=== PATIENT | female | born 1995 | race Caucasian/White ===

== ENCOUNTER → 2017-06-27 | Outpatient (CLI) | payer OTHER ==
[~2017-06-27] MED LIST: ACETAMINOPHEN-1 EAC1 PO; ALLEGRA ALLERG180 MG PO; ALLEGRA180 MG PO; BACTRIM DS TAB1 EACH PO; BENTYL20 MG PO; CARAFATE 1 GM TA1 G1; CARAFATE 1 GM TA1 G1 PO; CEFTIN500 MG; FLEXERIL PO; HYDROCODON-ACE1 EAC7 PO; HYDROCODONE-AP1 EAC6 PO; HYDROXYZINE HCL25 M2 GT; IBUPROFEN 800800 M1 PO; MEDROLDOSEPACK PO; NECON1 EAC1 PO; NORCO 5-325 TA1 EACH PO; PREDNISONE50 MG PO; PRILOSEC 10MG C10 MG PO; ROBAXIN 750 MG750 M1 PO; SINGULAIR 10 MG10 M1 PO; VELPHORO500 MG PO; VITAMIN D1000 UNI1 PO; ZANTAC; ZANTAC 150MG T150 MG PO; ZOFRAN ODT4 M1 SUBLING; ZOFRAN ODT4 MG PO; ZOLOFT25 MG PO; [UNRECOGNIZED DRUG - OTHER] PO; [UNRECOGNIZED DRUG - REMARK]
== END ==
LOC: M.MRI 11:26
DX: S06.0X9A Concussion with loss of consciousness of unspecified duration, initial encounter (principal); G43.909 Migraine, unspecified, not intractable, without status migrainosus; G24.5 Blepharospasm; X58.XXXA Exposure to other specified factors, initial encounter; Y93.89 Activity, other specified; Y92.89 Other specified places as the place of occurrence of the external cause; Y99.8 Other external cause status

== ENCOUNTER 2017-08-25 09:09 | Emergency (ER) | payer OTHER ==
[~2017-08-25] VITALS: Ht 165.1 cm; Wt 81.7 kg
[2017-08-25 09:37] LABS: ABSOLUTE EOSINOPHILS 0.3 thou/uL (0.0-0.7); ABSOLUTE LYMPHOCYTES 2.5 thou/uL (0.8-5.3); ABSOLUTE MONOCYTES 0.5 thou/uL (0.0-1.2); ABSOLUTE NEUTROPHILS 6.8 thou/uL (1.6-8.1); BASOPHILS 0.5 %; EOSINOPHILS 3.2 %; HEMATOCRIT 40.1 % (37.0-47.0); HEMOGLOBIN 13.4 gm/dL (12.0-15.0); LYMPHOCYTES 24.8 %; MCH 29.7 pg (26.0-34.0); MCHC 33.6 g/dL (28.0-37.0); MCV 88.3 fL (80.0-100.0); MONOCYTES 4.9 %; MPV 8.5 fl. (7.2-11.1); NUCLEATED RBCS 0 /100WBC; PLATELET COUNT* 295 thou/uL (150-400); POLYS 66.6 %; RBC 4.53 mil/uL (4.20-5.00); RDW-CV 12.8 % (10.5-14.5); WBC 10.3 thou/uL (4.0-11.0)
[2017-08-25 09:38] LABS: ANION GAP 7 mmol/L (7-16); BUN 17 mg/dL (7-18); CALCIUM 8.5 mg/dL (8.5-10.1); CHLORIDE 105 mmol/L (98-107); CO2 27 mmol/L (21-32); CREATININE 0.8 mg/dL (0.6-1.3); GLUCOSE 100 mg/dL (70-99); POTASSIUM 4.1 mmol/L (3.5-5.1); PROTIME 9.4 Seconds (9.20-11.50); SODIUM 139 mmol/L (136-145)
[2017-08-25 09:45] LABS: ALBUMIN 3.5 g/dL (3.4-5.0); ALKALINE PHOSPHATASE 80 U/L (46-116); SGOT 13 U/L (15-37); SGPT 23 U/L (30-65); TOTAL BILIRUBIN 0.2 mg/dL (<0.1-1.0); TOTAL PROTEIN 7.5 g/dL (6.4-8.2); TROPONIN-I LEVEL <0.06 ng/mL (<0.06)
[2017-08-25 11:11] VITALS: BP 111/71
--- NOTE | 2017-08-26 09:33 | EKG ---
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
== END 2017-08-25 11:12 | disposition home or self-care (01) ==
LOC: M.ERS 09:09
PROVIDERS: Family Medicine
DX: R20.2 Paresthesia of skin (principal); J45.909 Unspecified asthma, uncomplicated; Z88.0 Allergy status to penicillin; Z88.6 Allergy status to analgesic agent

== ENCOUNTER → 2018-03-27 | Outpatient (CLI) | payer OTHER ==
[~2018-03-27] MED LIST changes: +ATIVAN1 MG PO; +CIPRO500 MG PO; +ERYTHROMYCIN250 MG PO; +FLAGYL500 M1 PO; +MOBIC15 MG PO; +NECON1 EACH PO; +PHENERGAN 25 MG25 M1 PO; +REGLAN 10 MG TA10 MG PO
== END | disposition home or self-care (01) ==
LOC: M.RAD 09:54
DX: M25.511 Pain in right shoulder (principal); G89.29 Other chronic pain; Z88.0 Allergy status to penicillin; Z88.8 Allergy status to other drugs, medicaments and biological substances; Z79.899 Other long term (current) drug therapy; Z90.49 Acquired absence of other specified parts of digestive tract; Z98.890 Other specified postprocedural states

== ENCOUNTER 2018-04-23 16:40 | Inpatient (IN) | payer OTHER ==
[~2018-04-23] VITALS: Ht 165.1 cm; Wt 94.3 kg
--- NOTE | ~2018-04-23 | PROC ---
[address] [address] PROCEDURE REPORT Name: ORVILLE QUICK Room: [address] IN .R.#: [id number] Admission: 04/23/18 Attend Phys: Tino Nunes MD Discharge: Date of : 95 Report #: [id number] THIS REPORT FOR: //name// For GI report, Please see the Provation report in Perceptive 7 content. By: [id number] Records Staff [facility] /JONNY
[~2018-04-23 16:40] MED LIST changes: -ATIVAN1 MG PO; -CIPRO500 MG PO; -ERYTHROMYCIN250 MG PO; -FLAGYL500 M1 PO; -MOBIC15 MG PO; -PHENERGAN 25 MG25 M1 PO; -REGLAN 10 MG TA10 MG PO
[2018-04-23 16:48] VITALS: BP 126/83
[2018-04-23] MEDS ORDERED: MOBIC15 MG PO (16:53)
[2018-04-23 17:45] LABS: ICTOTEST (BILI CONFIRMATORY) Negative (Negative); URINE BILIRUBIN 1+ (Negative); URINE BLOOD 3+ (Negative); URINE CLARITY CLEAR; URINE COLOR YELLOW; URINE GLUCOSE-RANDOM NEGATIVE (Negative); URINE KETONES TRACE (Negative); URINE LEUKOCYTES-REFLEX TRACE (Negative); URINE NITRITE-REFLEX NEGATIVE (Negative); URINE PROTEIN 2+ (Negative); URINE SPECIFIC GRAVITY >= 1.030 (1.005-1.030)
[2018-04-23 17:48] LABS: BACTERIA-REFLEX >30 Many /HPF (None Seen); CASTS None Seen /LPF (None Seen); CRYSTALS None Seen /LPF (None Seen); MUCUS 0-3 Light strn/LPF (None Seen); SQUAMOUS >10 Many /LPF (0-3); URINE RBC 0-2 Rare /HPF (0-2); URINE WBC-REFLEX 6-15 Few /HPF (0-5)
[2018-04-23 17:59] LABS: ABSOLUTE BASOPHILS 0.1 thou/uL (0.0-0.2); ABSOLUTE EOSINOPHILS 0.1 thou/uL (0.0-0.7); ABSOLUTE LYMPHOCYTES 1.8 thou/uL (0.8-5.3); ABSOLUTE MONOCYTES 0.4 thou/uL (0.0-1.2); ABSOLUTE NEUTROPHILS 5.2 thou/uL (1.6-8.1); BASOPHILS 0.9 %; EOSINOPHILS 0.8 %; HEMATOCRIT 40.6 % (37.0-47.0); MCH 30.4 pg (26.0-34.0); MCHC 34.4 g/dL (28.0-37.0); MCV 88.3 fL (80.0-100.0); MONOCYTES 5.5 %; MPV 8.3 fl. (7.2-11.1); NUCLEATED RBCS 0 /100WBC; PLATELET COUNT* 270 thou/uL (150-400); POLYS 68.8 %; RDW-CV 12.5 % (10.5-14.5); WBC 7.6 thou/uL (4.0-11.0)
[2018-04-23 18:05] LABS: CALCIUM 8.4 mg/dL (8.5-10.1); CREATININE 0.8 mg/dL (0.6-1.3); POTASSIUM 3.3 mmol/L (3.5-5.1)
[2018-04-23 18:10] LABS: ALBUMIN 3.4 g/dL (3.4-5.0); TOTAL BILIRUBIN 0.2 mg/dL (<0.1-1.0); TOTAL PROTEIN 7.4 g/dL (6.4-8.2)
[2018-04-23 21:20] VITALS: BP 111/60
[2018-04-23 22:00] VITALS: BP 120/83
--- NOTE | 2018-04-24 00:14 | NUR ---
PT ARRIVED ON UNIT FROM ER AROUND 2109. VITALS STABLE. PAIN CONTROLLED WITH FENTANYL. HEATING PAD ORDERED. IV IN L AC PATENT, INFUSING. UP WITH ASSIST. ASSESSMENT COMPLETE. AT BEDSIDE. CALL LIGHT WITHIN REACH. WILL CONTINUE TO MONITOR.
--- NOTE | 2018-04-24 04:31 | NUR ---
PT REMAINED A&Ox4 THROUGHOUT SHIFT. VITALS STABLE. PAIN RELIEVED WITH FENTANYL AND A HEATING PAD. IV IN L AC PATENT, INFUSING. UP WITH STAND BY ASSIST. NAUSEA CONTROLLED WITH ZOFRAN. REMAINED NPO FOR POSSIBLE PROCEDURE IN THE MORNING. AT BEDSIDE. CALL LIGHT WITHIN REACH. HOURLY ROUNDING COMPLETE. WILL CONTINUE TO MONITOR.
[2018-04-24 06:06] LABS: AMP/METHAMP Negative (Negative); BARBITURATES Negative (Negative); BENZODIAZEPINES Negative (Negative); COCAINE Negative (Negative); METHADONE Negative (Negative); OPIATES POSITIVE (Negative); PCP Negative (Negative); THC Negative (Negative)
[2018-04-24 08:36] VITALS: BP 124/79
[2018-04-24 08:44] VITALS: BP 120/83
[2018-04-24 10:56] LABS: ABSOLUTE BASOPHILS 0.1 thou/uL (0.0-0.2); ABSOLUTE MONOCYTES 1.1 thou/uL (0.0-1.2); ABSOLUTE NEUTROPHILS 14.6 thou/uL (1.6-8.1); BASOPHILS 0.3 %; HEMATOCRIT 37.3 % (37.0-47.0); HEMOGLOBIN 12.5 gm/dL (12.0-15.0); LYMPHOCYTES 11.1 %; MCH 30.2 pg (26.0-34.0); MCHC 33.4 g/dL (28.0-37.0); MCV 90.5 fL (80.0-100.0); MONOCYTES 5.9 %; MPV 8.2 fl. (7.2-11.1); NUCLEATED RBCS 0 /100WBC; PLATELET COUNT* 232 thou/uL (150-400); POLYS 82.7 %; RBC 4.12 mil/uL (4.20-5.00); RDW-CV 12.7 % (10.5-14.5); WBC 17.7 thou/uL (4.0-11.0)
[2018-04-24 11:09] LABS: CALCIUM 7.9 mg/dL (8.5-10.1); CREATININE 0.9 mg/dL (0.6-1.3); POTASSIUM 3.5 mmol/L (3.5-5.1)
--- NOTE | 2018-04-24 14:35 | NUR ---
PT CAME BACK FROM COLONOSCOPY WITH TUBE FOR DECOMPRESSION. PT ALERT AN ORIENTED. PT C/O PAIN, MEDS GIVEN ORDERED. FALL RISK PRECAUTIONS IN PLACE. WILL CONTINUE TO MONITOR.
--- NOTE | 2018-04-24 14:55 | NUR ---
FIRST FLUSH GIVEN THROUGH OG TUBE, 500 CC WENT IN, 450 CAME BACK OUT WITH SMALL AMOUNTS OF LIQUID STOOL. PT STATED NO DISCOMFORT OR PAIN WITH FLUSH. PAIN MEDS GIVEN PRIOR TO FLUSHING. WILL CONTINUE TO MONITOR.
[2018-04-24 15:46] VITALS: BP 129/80
--- NOTE | 2018-04-24 17:22 | NUR ---
PT REMAINED ALERT AND ORIENTED. PT HAS SLEPT MOST OF SHIFT AFTER SURGERY. PT HAD 500 ML FLUSH THROUGH OG TUBE. PT TOLERATED WELL. PT C/O PAIN, MEDS GIVEN ORDERED. PT HAD DIFFIUCLTY URINATING POST SURGERY, AFTER SOME ATTMEPTS PT WAS ABLE TO VOID. FALL RISK PRECAUTIONS IN PLACE. HOURLY ROUNDING COMPLETED. WILL CONTINUE TO MONITOR.
[2018-04-24 20:20] VITALS: BP 111/66
[2018-04-25 00:29] VITALS: BP 101/63
[2018-04-25 04:29] VITALS: BP 90/55
[2018-04-25 04:44] LABS: HEMATOCRIT 31.2 % (37.0-47.0); HEMOGLOBIN 10.8 gm/dL (12.0-15.0); MCH 30.6 pg (26.0-34.0); MCHC 34.6 g/dL (28.0-37.0); MCV 88.4 fL (80.0-100.0); MPV 8.3 fl. (7.2-11.1); NUCLEATED RBCS 0 /100WBC; PLATELET COUNT* 210 thou/uL (150-400); RBC 3.53 mil/uL (4.20-5.00); RDW-CV 12.6 % (10.5-14.5); WBC 16.8 thou/uL (4.0-11.0)
--- NOTE | 2018-04-25 05:13 | NUR ---
PATIENT HAS SLEPT WELL THROUGHOUT MOST OF THE NIGHT. PAIN MEDICATION GIVEN ORDERED AND CHARTED. VSS ON RA, ALTHOUGH BP LOW AFTER TAKING PAIN MEDICATION. PATIENT IS UP WITH SBA. COLONIC DECOMPRESSION TUBE IN PLACE AND FLUSHED EVERY 4HRS WITH 500CC OF WARM TAP WATER. PATIENT TOLERATING WELL. IV IN LEFT AC-NS @ 100ML/HR. PATIENTS MOTHER AT BEDSIDE. PATIENT INSTRUCTED TO USE CALL LIGHT WHEN NEEDING ASSISTANCE. HOURLY ROUNDS MADE. WILL CONTINUE TO MONITOR.
[2018-04-25 05:22] LABS: ALBUMIN 2.6 g/dL (3.4-5.0); CALCIUM 7.9 mg/dL (8.5-10.1); CREATININE 0.7 mg/dL (0.6-1.3); POTASSIUM 3.1 mmol/L (3.5-5.1); TOTAL BILIRUBIN 0.4 mg/dL (<0.1-1.0)
[2018-04-25 06:13] LABS: ABSOLUTE LYMPHOCYTES 2.4 thou/uL (0.8-5.3); ABSOLUTE MONOCYTES 0.7 thou/uL (0.0-1.2); ABSOLUTE NEUTROPHILS 13.8 thou/uL (1.6-8.1); PLATELET ESTIMATE ADEQUATE
[2018-04-25 06:14] LABS: ANISOCYTOSIS 1+; POIKILOCYTOSIS 1+
[2018-04-25 08:45] VITALS: BP 96/60
[2018-04-25 08:50] VITALS: BP 96/60
--- NOTE | 2018-04-25 14:53 | NUR ---
SPOKE WITH PT. SHE WAS ALERT AND ORIENTED. SHE SAID SHE IS A NEWLYWED. JUST GOT 2 MONTHS AGO. 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 SHE SAID HER AND PARENTS ARE SUPPORTIVE. SHE DOES NOT FEEL SHE WILL HAVE ANY DISCHARGE NEEDS.
--- NOTE | 2018-04-25 15:20 | NUR ---
I REVIEWED DANILO GONZÁLES ASSESSMENT AND AGREE, THIS NURSE MARY GARRISON
[2018-04-25 15:27] VITALS: BP 88/54
--- NOTE | 2018-04-25 17:28 | NUR ---
PT REMAINED ALERT AND ORIENTED. PT C/O PAIN, ORAL MEDS GIVEN ORDERED. PT BLOOD PRESSURE HAS BEEN SOFT IN THE 90'S FOR SYSTOLIC, IV PAIN MEDS HELD. PT HAD ENEMA GIVEN THROUGH DECOMPRESSION TUBE. PT STATES HAVING DIFFICULTY URINATING, BLADDER SCAN SHOWED 525 ML IN BLADDER, ENOCURAGED PT TO URINATE. WILL RECHECK IN 1 HOUR AND BLADDER SCAN AFTER ATTEMPTING TO URINATE. FALL RISK PRECAUTIONS IN PLACE. HOURLY ROUNDING COMPLETED. WILL CONTINUE TO MONITOR.
[2018-04-25 20:00] VITALS: BP 98/64
--- NOTE | 2018-04-26 05:02 | NUR ---
PT REMAINED A&Ox4 THROUGHOUT SHIFT. VITALS STABLE. IV IN L AC PATENT, INFUSING. PAIN CONTROLLED WITH NORCO AND FENTANYL. ENEMA COMPLETE PER ORDERS. BOWEL FLUSHES DONE Q4H COMPLETE PER ORDERS. PT UP WITH ASSIST TO BATHROOM. MOTHER AT BEDSIDE. HOURLY ROUNDING COMPLETE. CALL LIGHT WITHIN REACH. WILL CONTINUE TO MONITOR.
[2018-04-26 07:20] LABS: ABSOLUTE EOSINOPHILS 0.1 thou/uL (0.0-0.7); ABSOLUTE LYMPHOCYTES 2.4 thou/uL (0.8-5.3); ABSOLUTE MONOCYTES 0.6 thou/uL (0.0-1.2); ABSOLUTE NEUTROPHILS 8.5 thou/uL (1.6-8.1); BASOPHILS 0.2 %; EOSINOPHILS 0.5 %; HEMATOCRIT 30.8 % (37.0-47.0); HEMOGLOBIN 10.4 gm/dL (12.0-15.0); LYMPHOCYTES 20.4 %; MCH 30.1 pg (26.0-34.0); MCHC 33.9 g/dL (28.0-37.0); MCV 88.8 fL (80.0-100.0); MONOCYTES 5.5 %; MPV 7.8 fl. (7.2-11.1); NUCLEATED RBCS 0 /100WBC; PLATELET COUNT* 207 thou/uL (150-400); POLYS 73.4 %; RBC 3.47 mil/uL (4.20-5.00); RDW-CV 12.9 % (10.5-14.5); WBC 11.6 thou/uL (4.0-11.0)
[2018-04-26 07:26] LABS: CALCIUM 7.7 mg/dL (8.5-10.1); CREATININE 0.7 mg/dL (0.6-1.3); POTASSIUM 3.3 mmol/L (3.5-5.1)
[2018-04-26 08:00] VITALS: BP 99/60
--- NOTE | 2018-04-26 12:05 | PATH ---
[address] [address] PATHOLOGY RPT PROCEDURE Name: ABDELRAHMANNURY Room: [address] IN .R.#: [id number] Admission: 04/23/18 Date of : [birth year] Discharge: Report #: [id number] Path Case #: [id number] [facility] Accession Number: [id number] . 01 Material submitted: . CECAL BIOPSY SUSPECT ISCHEMIC COLITIS . 01 Clinical history: . None provided . 02 Diagnosis: Cecal biopsy: - Nonspecific, inflamed / necrotic debris and fatty tissue with scant glands. See comment. [facility]/04/25/2018 . 02 Comment: Scant glands are present which are too few and inflamed to further qualify, but are consistent with benign colonic crypts. No granulomas or viral inclusions are seen. (KRISSY:pit 04/25/2018) . 02 Electronically signed: . Telly Garcia MD, Pathologist NPI- [id number] . 01 Gross description: . Received in formalin labeled "Nury Quick, cecal biopsy suspect ischemic colitis," is a single segment of linda soft tissue measuring 0.3 cm in maximum dimension. The specimen is entirely submitted in cassette A1. (TSD; 04/24/2018) TOB/TOB . 02 Pathologist provided ICD-10: K63.9, K59.39 . 02 CPT . 034916 Specimen Comment: A courtesy copy of this report has been sent to Specimen Comment: [phone], , . Specimen Comment: Report sent to ,DR MUNOZ / DR SWEENEY Specimen Comment: A duplicate report has been generated due to demographic updates. Performed at: [address] [id number] MD Nam Guillen MD Phone: [phone] Performed at: [address] [address] PATHOLOGY RPT PROCEDURE Name: NURY QUICK Room: [address] IN [facility].#: [id number] Admission: 04/23/18 Date of : [birth year] Discharge: Report #: [id number] Path Case #: [id number] [address] [id number] MD Telly Garcia MD Phone: [phone]
[2018-04-26 12:15] VITALS: BP 92/62
[2018-04-26 16:46] VITALS: BP 102/67
--- NOTE | 2018-04-26 18:04 | NUR ---
PT ALERT AND ORIENTED X4. RECEIVED HYDROCODONE FOR PAIN CONTROL AND ZOFRAN FOR NAUSEA DURING DAY. IVF INFUSING @ 100 MLS/HR. BOWEL FLUSH DONE @ 1045 PER ORDER. RECEIVED POTASSIUM AND MAGNESIUM REPLACEMENT DURING DAY. REMOVED RECTAL TUBE @ 1445. PT UP TO SHOWER/CHAIR. HOURLY ROUNDS MAINTAINED. FAMILY AT BEDSIDE. CALL LIGHT WITHIN REACH.
[2018-04-26 20:00] VITALS: BP 100/66
--- NOTE | 2018-04-27 04:58 | NUR ---
PT REMAINED A&Ox4 THROUGHOUT SHIFT. VITALS STABLE. UP WITH ASSIST TO BATHROOM. IV IN L AC PATNENT, INFUSING. PAIN CONTROLLED WITH NORCO. TOLERATED SOLID FOOD. PT MOTHER AT BEDSIDE. CALL LIGHT WITHIN REACH. HOURLY ROUNING COMPLETE. WILL CONTINUE TO MONITOR.
[2018-04-27 05:41] LABS: ABSOLUTE EOSINOPHILS 0.1 thou/uL (0.0-0.7); ABSOLUTE LYMPHOCYTES 3.3 thou/uL (0.8-5.3); ABSOLUTE MONOCYTES 0.5 thou/uL (0.0-1.2); ABSOLUTE NEUTROPHILS 6.8 thou/uL (1.6-8.1); BASOPHILS 0.4 %; EOSINOPHILS 1.4 %; HEMATOCRIT 34.1 % (37.0-47.0); HEMOGLOBIN 11.5 gm/dL (12.0-15.0); LYMPHOCYTES 30.2 %; MCH 30.4 pg (26.0-34.0); MCHC 33.8 g/dL (28.0-37.0); MONOCYTES 4.8 %; MPV 8.3 fl. (7.2-11.1); NUCLEATED RBCS 0 /100WBC; POLYS 63.2 %; RBC 3.79 mil/uL (4.20-5.00); RDW-CV 12.5 % (10.5-14.5); WBC 10.8 thou/uL (4.0-11.0)
[2018-04-27 05:51] LABS: PLATELET COUNT* 282 thou/uL (150-400)
[2018-04-27 06:00] LABS: CREATININE 0.7 mg/dL (0.6-1.3); POTASSIUM 3.9 mmol/L (3.5-5.1)
[2018-04-27 08:00] VITALS: BP 106/64
[2018-04-27 17:01] VITALS: BP 106/65
--- NOTE | 2018-04-27 18:39 | NUR ---
PT ALERT AND ORIENTED X 4. ADMINISTERED IV PHENERGAN AND ZOFRAN FOR NAUSEA. RECEIVED IV FENTANYL FOR ABDOMINAL PAIN. PT HAD EMESIS X 1 IN AM. UP WITH SBA X 1. PASSING GAS-NO BOWEL MOVEMENTS DURING DAY. HOURLY ROUNDS MAINTAINED. PT WILL USE CALL LIGHT FOR ASSISTANCE. CALL LIGHT WITHIN REACH.
[2018-04-27 21:03] VITALS: BP 94/63
--- NOTE | 2018-04-28 08:12 | NUR ---
PT IS ABLE TO COMMUNICATE HER NEEDS TO STAFF EFFECTIVELY. CURRENT PAIN MEDICATION REGIMEN HAS BEEN ADEQUATE FOR CONTROLLING HER PAIN UP TO THIS TIME. SHE IS STILL HAVING SOME DIFFICULTY EATING WITHOUT VOMITING SOON AFTERWARD; IV PHENERGEN HAS BEEN MOST EFFECTIVE TREATING HER N/V UP TO THIS TIME. GI FOLLOWING AND SHOULD SEE HER TODAY. PT'S MOTHER IS CONCERNED.
[2018-04-28 08:55] VITALS: BP 118/76
[2018-04-28 13:22] LABS: HEMATOCRIT 35.2 % (37.0-47.0); MCH 30.3 pg (26.0-34.0); MCV 89.2 fL (80.0-100.0); MPV 7.8 fl. (7.2-11.1); RBC 3.94 mil/uL (4.20-5.00); RDW-CV 12.7 % (10.5-14.5); WBC 9.4 thou/uL (4.0-11.0)
[2018-04-28 13:47] LABS: CALCIUM 8.5 mg/dL (8.5-10.1); CREATININE 0.7 mg/dL (0.6-1.3); MAGNESIUM 1.8 mg/dL (1.8-2.4); POTASSIUM 3.4 mmol/L (3.5-5.1)
[2018-04-28 20:45] VITALS: BP 110/69
--- NOTE | 2018-04-28 22:57 | CON ---
[address] [address] CONSULTATION Name: ORVILLE QUICK Room: [address] IN M.R.#: [id number] Admission: 04/23/18 Attend Phys: Tino Nunes MD Discharge: Date of : 95 Report #: [id number] THIS REPORT FOR: //name// CC: Kojo Mari MD [facility] DATE OF SERVICE: 04/23/2018 REFERRING PHYSICIAN: Tino Nunes MD REASON FOR CONSULTATION: Abdominal pain. IMPRESSION: 1. Acute right-sided abdominal pain with markedly dilated colon, particularly in the right colon -- suspect ischemic colitis. 2. Dilated colon without evidence for obvious obstruction -- suspect [place] syndrome. 3. 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 RECOMMENDATIONS: 1. Because the patient's abdomen is still exquisitely tender, I am going to perform an abdominal series to ensure she has no evidence for a pneumoperitoneum. 2. If her abdominal series is negative, I will proceed with colonoscopy this morning under general endotracheal anesthesia with plans to decompress the colon and place a colonic decompression tube. Also, take biopsies from the colon due to her personal history of eosinophilic colitis. I discussed the impression and plans with the patient and her mother and they are agreeable to the same. HISTORY OF PRESENT ILLNESS: The patient is a pleasant 23-year-old white female, with history of eosinophilic colitis who was previously followed at [facility] for the same, who was admitted to the hospital with complaints of worsening right-sided abdominal pain radiating into her back for the last 24 hours. She had flu-like illness over the weekend with body aches, fevers and chills and was having a little bit of loose stools. She was having diarrhea, but she was only going to bathroom usually once or twice a day. She denies any bleeding. She has not been on any antibiotics. She has not been exposed to anyone with these issues. She had been doing fine without any complaints referable to upper or lower GI tract for quite some time. She has undergone endoscopic studies of her lower GI tract by me in the past and was actually referred to [facility] for long-term evaluation and treatment of her eosinophilic colitis. She has never had gone for the same. She, prior to this, had not been having any issues referable to her [facility] [place] [address] CONSULTATION Name: ORVILLE QUICK Anna Room: [address] IN [facility]#: [id number] Admission: 04/23/18 Attend Phys: Tino Nunes MD Discharge: Date of : 95 Report #: [id number] lower GI tract. She was seen through the Emergency Room and underwent laboratory testing, which was essentially unrevealing and a CAT scan of her abdomen and pelvis, which revealed dilated colon up to almost 9.5 cm at the level of cecum, which extended across the ascending colon, transverse colon and descending colon with thick relative decompression of the sigmoid colon and rectum. I reviewed the CT scan and did not see an obvious obstruction or obvious bowel wall thickening. She is admitted to the hospital for further evaluation and treatment. ALLERGIES: PENICILLIN AND TRAMADOL. MEDICATIONS: At home include vitamin D, meloxicam and Necon. PAST MEDICAL HISTORY: Significant for asthma, eosinophilic colitis. She has had previous cholecystectomy. She had left shoulder surgery. She had right hip surgery for a torn labrum in the past. SOCIAL HISTORY: The patient does not smoke or drink. FAMILY HISTORY: Remarkable for Crohn's disease in an aunt. PHYSICAL EXAMINATION: GENERAL: This is a pleasant 23-year-old white female who is in some distress secondary to pain. She is awake and alert. CARDIOPULMONARY: Revealed tachycardic rate and rhythm. LUNGS: Clear. ABDOMEN: Soft, exquisitely tender in the right lower quadrant. No rebound that I could appreciate was noted. LABORATORY DATA: From admission revealed a white count of 7.6, hemoglobin 14.0, platelet count 270,000. MCV is 88.3, RDW 12.5. Her sodium was 139, potassium 3.3, chloride 106, bicarbonate 26, BUN 17, creatinine 0.8, total bilirubin 0.2, alkaline phosphatase 80, AST is 23, ALT 42, albumin is 3.4. Sed rate is 10. C-reactive protein 37.2. Lactic acid level was 0.5. DISCUSSION: At the present time, the patient has got severe abdominal pain with colonic distention. We will proceed with abdominal series and if negative, colonoscopy with colonic decompression tube placement today. I have discussed the plans with the patient as well and they are agreeable to the same. <ELECTRONICALLY SIGNED> By: Magan Pickard DO 04/28/18 2257 0804 1852Magan Pickard DO /nt
--- NOTE | 2018-04-29 06:07 | NUR ---
PATIENT HAS SLEPT WELL THROUGHOUT THE NIGHT. VSS ON RA. NO C/O PAIN. NO BM NOTED. MEDICATIONS GIVEN ORDERED AND CHARTED. IV IN LEFT AC-NS @ 100ML/HR. AT BEDSIDE. PATIENT INSTRUCTED TO USE CALL LIGHT WHEN NEEDING ASSISTANCE. HOURLY ROUNDS MADE. WILL CONTINUE WITH PLAN OF CARE AND NURSING TO MONITOR.
[2018-04-29 07:45] VITALS: BP 114/72
[2018-04-29 11:06] LABS: ABSOLUTE BASOPHILS 0.1 thou/uL (0.0-0.2); ABSOLUTE EOSINOPHILS 0.1 thou/uL (0.0-0.7); ABSOLUTE LYMPHOCYTES 1.6 thou/uL (0.8-5.3); ABSOLUTE MONOCYTES 0.5 thou/uL (0.0-1.2); BASOPHILS 0.5 %; EOSINOPHILS 0.9 %; HEMATOCRIT 34.1 % (37.0-47.0); HEMOGLOBIN 11.6 gm/dL (12.0-15.0); LYMPHOCYTES 14.1 %; MCH 30.5 pg (26.0-34.0); MCHC 34.1 g/dL (28.0-37.0); MCV 89.3 fL (80.0-100.0); MONOCYTES 4.7 %; MPV 7.9 fl. (7.2-11.1); NUCLEATED RBCS 0 /100WBC; PLATELET COUNT* 345 thou/uL (150-400); POLYS 79.8 %; RBC 3.81 mil/uL (4.20-5.00); RDW-CV 12.7 % (10.5-14.5); WBC 11.2 thou/uL (4.0-11.0)
[2018-04-29 11:08] LABS: CALCIUM 8.4 mg/dL (8.5-10.1); CREATININE 0.8 mg/dL (0.6-1.3); POTASSIUM 3.6 mmol/L (3.5-5.1)
[2018-04-29 16:30] VITALS: BP 119/69
--- NOTE | 2018-04-29 17:42 | NUR ---
ALERT AND ORIENTED X4. UP AD KENDELL IN ROOM. IV IS PATENT AND SALINE LOCKED. DENIES NEED FOR PAIN OR NAUSEA MEDICATION THROUGHOUT SHIFT. PO LORAZAPAM GIVEN FOR ANXIETY. AMBULATED IN HALLWAYS TODAY. HAD MULTIPLE BOWEL MOVEMENT THIS SHIFT. TOLERATING DIET. VSS ON ROOM AIR. HOURLY ROUNDS HAVE BEEN MAINTAINED THROUGHOUT SHIFT. CALL LIGHT IS WITHIN REACH. NURSING WILL CONTINUE TO MONITOR.
[2018-04-29 22:50] VITALS: BP 113/68
--- NOTE | 2018-04-30 05:23 | NUR ---
PATIENT HAS SLEPT WELL THROUGHOUT THE NIGHT. VSS ON RA. MEDICATIONS GIVEN ORDERED AND CHARTED. PATIENT UP AD-KENDELL AND STEADY. IV IN LEFT AC-SL. IV ABT GIVEN WITHOUT ANY ADVERSE SIDE EFFECTS NOTED. PATIENT INSTRUCTED TO USE CALL LIGHT WHEN NEEDED. WILL CONTINUE WITH PLAN OF CARE. HOURLY ROUNDS MADE. WILL CONTINUE TO MONITOR.
[2018-04-30 08:00] VITALS: BP 98/59
[2018-04-30 10:40] LABS: ALBUMIN 2.9 g/dL (3.4-5.0); DIRECT BILIRUBIN 0.3 mg/dL (<0.1-0.3); TOTAL BILIRUBIN 0.5 mg/dL (<0.1-1.0); TOTAL PROTEIN 6.3 g/dL (6.4-8.2)
[2018-04-30] MEDS ORDERED: REGLAN 10 MG TA10 MG PO (10:58)
[2018-04-30] MEDS ORDERED: PHENERGAN 25 MG25 M1 PO (10:59)
[2018-04-30] MEDS ORDERED: CIPRO500 MG PO (11:00)
[2018-04-30] MEDS ORDERED: FLAGYL500 M1 PO (11:02)
[2018-04-30 11:04] VITALS: BP 98/59
[2018-04-30] MEDS ORDERED: ATIVAN1 MG PO (13:37)
[2018-04-30] MEDS ORDERED: ERYTHROMYCIN250 MG PO (13:39)
[2018-04-30 13:40] VITALS: BP 98/59
--- NOTE | 2018-04-30 17:57 | NUR ---
PATIENT LEFT UNIT AT 1700. ALERT AND ORIENTED X4. UP AD KENDELL IN ROOM. IV DC'D. DENIES NEED FOR PAIN MEDICATION. DENIES NAUSEA. TOLERATING DIET. ALL PERSONAL ITEMS LEFT WITH PATIENT. DISCHARGE INSTRUCTIONS, PRESCRIPTIONS, AND NEW MEDICATION INFORMATION SENT WITH PATIENT. VSS ON ROOM AIR. HOURLY ROUNDS HAVE BEEN MAINTAINED THROUGHOUT SHIFT. LEFT WITH MOM VIA CAR.
[2018-04-30 18:01] VITALS: BP 98/59
--- NOTE | 2018-04-30 18:04 | NUR ---
RN HAS REVIEWED AND AGREES WITH STUDENT NURSES CHARTING.
== END 2018-04-30 17:00 | disposition home or self-care (01) | DRG 394 ==
LOC: M.ERS 16:40 → M.TBA-ER 18:52 → M.ORTHSURG 18:52
PROVIDERS: Family Medicine; Internal Medicine Gastroenterology; Nurse Practitioner Family; ADMIT Internal Medicine
PROC: 0DBH8ZX Excision of Cecum, Via Natural or Artificial Opening Endoscopic, Diagnostic (ICD-10-PCS; principal; 2018-04-24)
PROC: 0D7E8ZZ Dilation of Large Intestine, Via Natural or Artificial Opening Endoscopic (ICD-10-PCS; principal; 2018-04-24)
DX: K55.9 Vascular disorder of intestine, unspecified (principal); K59.31 Toxic megacolon; E87.6 Hypokalemia; K52.9 Noninfective gastroenteritis and colitis, unspecified; J45.20 Mild intermittent asthma, uncomplicated; Z88.0 Allergy status to penicillin; Z88.8 Allergy status to other drugs, medicaments and biological substances; Z79.899 Other long term (current) drug therapy; Z83.79 Family history of other diseases of the digestive system; Z90.49 Acquired absence of other specified parts of digestive tract; Z82.49 Family history of ischemic heart disease and other diseases of the circulatory system; Z83.3 Family history of diabetes mellitus

== ENCOUNTER → 2018-05-10 | Outpatient (CLI) | payer OTHER ==
[~2018-05-10] MED LIST changes: +ATIVAN1 MG PO; +CIPRO500 MG PO; +ERYTHROMYCIN250 MG PO; +FLAGYL500 M1 PO; +MOBIC15 MG PO; +PHENERGAN 25 MG25 M1 PO; +REGLAN 10 MG TA10 MG PO
[2018-05-10 10:01] LABS: ABSOLUTE BASOPHILS 0.1 thou/uL (0.0-0.2); ABSOLUTE EOSINOPHILS 0.2 thou/uL (0.0-0.7); ABSOLUTE LYMPHOCYTES 2.6 thou/uL (0.8-5.3); ABSOLUTE MONOCYTES 0.5 thou/uL (0.0-1.2); ABSOLUTE NEUTROPHILS 4.6 thou/uL (1.6-8.1); EOSINOPHILS 2.3 %; HEMATOCRIT 38.9 % (37.0-47.0); HEMOGLOBIN 13.1 gm/dL (12.0-15.0); LYMPHOCYTES 32.4 %; MCH 30.4 pg (26.0-34.0); MCHC 33.6 g/dL (28.0-37.0); MCV 90.2 fL (80.0-100.0); MONOCYTES 5.9 %; MPV 8.6 fl. (7.2-11.1); NUCLEATED RBCS 0 /100WBC; PLATELET COUNT* 365 thou/uL (150-400); POLYS 58.4 %; RBC 4.31 mil/uL (4.20-5.00); WBC 7.9 thou/uL (4.0-11.0)
[2018-05-10 10:17] LABS: ALBUMIN 3.2 g/dL (3.4-5.0); CALCIUM 8.7 mg/dL (8.5-10.1); CREATININE 0.9 mg/dL (0.6-1.3); POTASSIUM 4.1 mmol/L (3.5-5.1); TOTAL BILIRUBIN 0.4 mg/dL (<0.1-1.0); TOTAL PROTEIN 6.9 g/dL (6.4-8.2)
[2018-05-10 11:02] LABS: ESR (SEDRATE) 20 mm/hr (0-20)
== END ==
LOC: M.CT 08:54
PROVIDERS: Nurse Practitioner Adult Health
DX: I99.8 Other disorder of circulatory system (principal); R10.11 Right upper quadrant pain; R94.5 Abnormal results of liver function studies; K55.9 Vascular disorder of intestine, unspecified; Z90.49 Acquired absence of other specified parts of digestive tract

== ENCOUNTER → 2018-06-06 | Outpatient (CLI) | payer OTHER ==
[2018-06-06 14:41] LABS: ALBUMIN 3.6 g/dL (3.4-5.0); CALCIUM 8.9 mg/dL (8.5-10.1); CREATININE 0.9 mg/dL (0.6-1.3); POTASSIUM 4.4 mmol/L (3.5-5.1); TOTAL BILIRUBIN 0.3 mg/dL (<0.1-1.0); TOTAL PROTEIN 7.1 g/dL (6.4-8.2)
== END ==
LOC: M.LAB 13:54
PROVIDERS: Nurse Practitioner Adult Health
DX: R94.5 Abnormal results of liver function studies (principal)

== ENCOUNTER → 2018-08-22 | Outpatient (CLI) | payer OTHER ==
[2018-08-22 12:41] LABS: ABSOLUTE BASOPHILS 0.1 thou/uL (0.0-0.2); ABSOLUTE EOSINOPHILS 0.1 thou/uL (0.0-0.7); ABSOLUTE LYMPHOCYTES 1.9 thou/uL (0.8-5.3); ABSOLUTE MONOCYTES 0.4 thou/uL (0.0-1.2); ABSOLUTE NEUTROPHILS 8.6 thou/uL (1.6-8.1); BASOPHILS 0.6 %; HEMATOCRIT 40.5 % (37.0-47.0); HEMOGLOBIN 13.8 gm/dL (12.0-15.0); LYMPHOCYTES 17.2 %; MCH 30.1 pg (26.0-34.0); MCHC 34.1 g/dL (28.0-37.0); MCV 88.3 fL (80.0-100.0); MONOCYTES 3.3 %; MPV 8.1 fl. (7.2-11.1); NUCLEATED RBCS 0 /100WBC; PLATELET COUNT* 288 thou/uL (150-400); POLYS 77.9 %; RBC 4.59 mil/uL (4.20-5.00)
[2018-08-22 13:09] LABS: ALBUMIN 3.6 g/dL (3.4-5.0); CREATININE 0.8 mg/dL (0.6-1.3); TOTAL BILIRUBIN 0.3 mg/dL (<0.1-1.0); TOTAL PROTEIN 7.7 g/dL (6.4-8.2)
[2018-08-22 15:49] LABS: ESR (SEDRATE) 11 mm/hr (0-20)
== END ==
LOC: M.LAB 12:15
PROVIDERS: Internal Medicine Gastroenterology
DX: D64.9 Anemia, unspecified (principal); R94.5 Abnormal results of liver function studies; K62.5 Hemorrhage of anus and rectum

== ENCOUNTER 2019-04-26 19:39 | Emergency (ER) | payer OTHER ==
[~2019-04-26] VITALS: Ht 165.1 cm; Wt 79.4 kg
[2019-04-26] MEDS ORDERED: VITAMIN B-125000 MCG PO (20:16)
[2019-04-26] MEDS ORDERED: JUNEL FE 24 TA1 EACH PO (20:17)
[2019-04-26] MEDS ORDERED: LEVO-T25 MCG PO (20:17)
[2019-04-26 20:22] LABS: URINE BILIRUBIN NEGATIVE (Negative); URINE BLOOD 2+ (Negative); URINE COLOR YELLOW; URINE GLUCOSE-RANDOM NEGATIVE (Negative); URINE KETONES NEGATIVE (Negative); URINE LEUKOCYTES-REFLEX NEGATIVE (Negative); URINE NITRITE-REFLEX NEGATIVE (Negative); URINE PROTEIN NEGATIVE (Negative); URINE SPECIFIC GRAVITY >= 1.030 (1.005-1.030); URINE UROBILINOGEN 0.2 E.U./dl (0.2-1.0)
[2019-04-26 20:23] LABS: URINE CLARITY HAZY
[2019-04-26 20:26] LABS: ABSOLUTE BASOPHILS 0.1 thou/uL (0.0-0.2); ABSOLUTE EOSINOPHILS 0.2 thou/uL (0.0-0.7); ABSOLUTE LYMPHOCYTES 3.4 thou/uL (0.8-5.3); ABSOLUTE MONOCYTES 0.6 thou/uL (0.0-1.2); ABSOLUTE NEUTROPHILS 8.7 thou/uL (1.6-8.1); BASOPHILS 0.7 %; EOSINOPHILS 1.9 %; HEMATOCRIT 39.8 % (37.0-47.0); HEMOGLOBIN 13.6 gm/dL (12.0-15.0); MCH 29.3 pg (26.0-34.0); MCHC 34.1 g/dL (28.0-37.0); MONOCYTES 4.9 %; MPV 8.2 fl. (7.2-11.1); NUCLEATED RBCS 0 /100WBC; PLATELET COUNT* 346 thou/uL (150-400); POLYS 66.5 %; RBC 4.62 mil/uL (4.20-5.00); RDW-CV 12.5 % (10.5-14.5)
[2019-04-26 20:34] LABS: CALCIUM 8.6 mg/dL (8.5-10.1); CREATININE 0.8 mg/dL (0.6-1.3); POTASSIUM 3.8 mmol/L (3.5-5.1)
[2019-04-26 20:34] LABS: SQUAMOUS 4-10 Moderate /LPF (0-3)
[2019-04-26 20:35] LABS: BACTERIA-REFLEX None Seen /HPF (None Seen); CASTS None Seen /LPF (None Seen); CRYSTALS None Seen /LPF (None Seen); MUCUS 4-6 Moderate strn/LPF (None Seen); URINE RBC 0-2 Rare /HPF (0-2); URINE WBC-REFLEX None Seen /HPF (0-5)
[2019-04-26 20:36] LABS: INR 0.9; PROTIME 9.6 Seconds (9.20-11.50)
[2019-04-26 23:05] VITALS: BP 114/56
== END 2019-04-26 23:05 | disposition home or self-care (01) ==
LOC: M.ERS 19:39
PROVIDERS: Emergency Medicine
DX: I73.00 Raynaud's syndrome without gangrene (principal); J45.909 Unspecified asthma, uncomplicated; Z90.89 Acquired absence of other organs; Z98.890 Other specified postprocedural states; Z88.0 Allergy status to penicillin

== ENCOUNTER → 2019-08-08 | Outpatient (CLI) | payer BC, OTHER ==
[~2019-08-08] MED LIST changes: +JUNEL FE 24 TA1 EACH PO; +LEVO-T25 MCG PO; +VITAMIN B-125000 MCG PO
[2019-08-08 17:36] LABS: ALBUMIN 3.8 g/dL (3.4-5.0); CALCIUM 8.8 mg/dL (8.5-10.1); POTASSIUM 4.1 mmol/L (3.5-5.1); TOTAL BILIRUBIN 0.2 mg/dL (<0.1-1.0); TOTAL PROTEIN 7.9 g/dL (6.4-8.2)
[2019-08-09 02:08] LABS: HEPATITIS B SURFACE AG Negative (Negative)
[2019-08-10 16:08] LABS: ANA INTERPRETATION Negative (Negative)
== END ==
LOC: M.LAB 16:54
PROVIDERS: Internal Medicine Gastroenterology
DX: R74.8 Abnormal levels of other serum enzymes (principal)

== ENCOUNTER → 2019-08-29 | Outpatient (CLI) | payer BC, OTHER ==
[2019-08-29 14:11] LABS: ALBUMIN 3.7 g/dL (3.4-5.0); DIRECT BILIRUBIN 0.1 mg/dL (<0.1-0.3); TOTAL BILIRUBIN 0.2 mg/dL (<0.1-1.0)
== END ==
LOC: M.LAB 13:32
PROVIDERS: ATTEND Internal Medicine Gastroenterology
DX: K51.90 Ulcerative colitis, unspecified, without complications (principal); Z79.899 Other long term (current) drug therapy

== ENCOUNTER → 2020-01-23 | Outpatient (CLI) | payer BC, OTHER | LOC: M.ULTRA 15:30 | PROVIDERS: ATTEND Physician Assistant | DX: N64.4 Mastodynia (principal) ==

== ENCOUNTER 2020-02-24 12:22 | Emergency (ER) | payer BC, OTHER ==
[~2020-02-24] VITALS: Ht 157.5 cm; Wt 94.3 kg
[2020-02-24] MEDS ORDERED: BUPROPION HCL100 MG PO (12:31)
[2020-02-24] MEDS ORDERED: METFORMIN HCL500 M3 PO (12:31)
[2020-02-24 12:40] LABS: ABSOLUTE BASOPHILS 0.1 thou/uL (0.0-0.2); ABSOLUTE EOSINOPHILS 0.3 thou/uL (0.0-0.7); ABSOLUTE LYMPHOCYTES 2.4 thou/uL (0.8-5.3); ABSOLUTE MONOCYTES 0.4 thou/uL (0.0-1.2); ABSOLUTE NEUTROPHILS 7.4 thou/uL (1.6-8.1); BASOPHILS 0.7 %; EOSINOPHILS 2.6 %; HEMATOCRIT 41.2 % (37.0-47.0); HEMOGLOBIN 13.8 gm/dL (12.0-15.0); LYMPHOCYTES 23.1 %; MCH 29.6 pg (26.0-34.0); MCHC 33.5 g/dL (28.0-37.0); MCV 88.4 fL (80.0-100.0); MONOCYTES 3.7 %; MPV 7.7 fl. (7.2-11.1); NUCLEATED RBCS 0 /100WBC; PLATELET COUNT* 353 thou/uL (150-400); POLYS 69.9 %; RBC 4.66 mil/uL (4.20-5.00); RDW-CV 12.6 % (10.5-14.5); WBC 10.6 thou/uL (4.0-11.0)
[2020-02-24 12:55] LABS: CALCIUM 8.6 mg/dL (8.5-10.1); CREATININE 0.9 mg/dL (0.6-1.3); POTASSIUM 3.9 mmol/L (3.5-5.1)
[2020-02-24 12:59] LABS: ALBUMIN 3.8 g/dL (3.4-5.0); TOTAL BILIRUBIN 0.4 mg/dL (<0.1-1.0); TOTAL PROTEIN 8.1 g/dL (6.4-8.2)
[2020-02-24 13:39] LABS: URINE BLOOD 2+ (Negative); URINE CLARITY CLEAR; URINE COLOR YELLOW; URINE GLUCOSE-RANDOM NEGATIVE (Negative); URINE KETONES NEGATIVE (Negative); URINE LEUKOCYTES-REFLEX NEGATIVE (Negative); URINE NITRITE-REFLEX NEGATIVE (Negative); URINE PROTEIN NEGATIVE (Negative); URINE SPECIFIC GRAVITY >= 1.030 (1.005-1.030); URINE UROBILINOGEN 0.2 E.U./dl (0.2-1.0)
[2020-02-24 13:46] LABS: ICTOTEST (BILI CONFIRMATORY) Negative (Negative); URINE BILIRUBIN 1+ (Negative)
[2020-02-24 14:01] LABS: SQUAMOUS 4-10 Moderate /LPF (0-3)
[2020-02-24 14:02] LABS: BACTERIA-REFLEX 1-9 Few /HPF (None Seen); CASTS None Seen /LPF (None Seen); URIC ACID CRYSTALS 4-10 Moderate /LPF (None Seen); URINE RBC 3-10 Few /HPF (0-2); URINE WBC-REFLEX 0-5 Rare /HPF (0-5)
[2020-02-24] MEDS ORDERED: FLAGYL500 M1 PO (14:31)
[2020-02-24] MEDS ORDERED: CIPRO500 MG PO (14:31)
[2020-02-24] MEDS ORDERED: NORCO 5-325 TA1 EAC2 PO (14:31)
[2020-02-24] MEDS ORDERED: PHENERGAN 25 MG25 M1 PO (14:32)
[2020-02-24 14:50] VITALS: BP 105/63
== END 2020-02-24 14:51 | disposition home or self-care (01) ==
LOC: M.ERS 12:22
PROVIDERS: Nurse Practitioner Family
DX: K52.9 Noninfective gastroenteritis and colitis, unspecified (principal); J45.909 Unspecified asthma, uncomplicated; Z88.0 Allergy status to penicillin; Z88.6 Allergy status to analgesic agent; Z86.2 Personal history of diseases of the blood and blood-forming organs and certain disorders involving the immune mechanism

== ENCOUNTER 2020-02-27 13:51 | Emergency (ER) | payer BC, OTHER ==
[~2020-02-27] VITALS: Ht 165.1 cm; Wt 94.3 kg
[~2020-02-27 13:51] MED LIST changes: +BUPROPION HCL100 MG PO; +METFORMIN HCL500 M3 PO; +NORCO 5-325 TA1 EAC2 PO
[2020-02-27 15:11] LABS: HEMOGLOBIN 14.1 gm/dL (12.0-15.0); MCH 29.5 pg (26.0-34.0); MCHC 32.8 g/dL (28.0-37.0); MCV 90.1 fL (80.0-100.0); MPV 8.1 fl. (7.2-11.1); NUCLEATED RBCS 0 /100WBC; PLATELET COUNT* 287 thou/uL (150-400); RBC 4.77 mil/uL (4.20-5.00); RDW-CV 13.1 % (10.5-14.5); WBC 22.1 thou/uL (4.0-11.0)
[2020-02-27 15:22] LABS: CALCIUM 8.5 mg/dL (8.5-10.1); CREATININE 0.9 mg/dL (0.6-1.3); POTASSIUM 4.2 mmol/L (3.5-5.1)
[2020-02-27 15:26] LABS: ALBUMIN 3.5 g/dL (3.4-5.0); TOTAL BILIRUBIN 0.2 mg/dL (<0.1-1.0); TOTAL PROTEIN 7.7 g/dL (6.4-8.2)
[2020-02-27 15:55] LABS: ABSOLUTE LYMPHOCYTES 2.7 thou/uL (0.8-5.3); ABSOLUTE NEUTROPHILS 19.4 thou/uL (1.6-8.1)
[2020-02-27 15:56] LABS: PLATELET ESTIMATE ADEQUATE
[2020-02-27 16:33] LABS: URINE BILIRUBIN NEGATIVE (Negative); URINE BLOOD 1+ (Negative); URINE COLOR YELLOW; URINE GLUCOSE-RANDOM NEGATIVE (Negative); URINE KETONES TRACE (Negative); URINE LEUKOCYTES-REFLEX TRACE (Negative); URINE NITRITE-REFLEX NEGATIVE (Negative); URINE PROTEIN NEGATIVE (Negative); URINE UROBILINOGEN 0.2 E.U./dl (0.2-1.0)
[2020-02-27 16:38] LABS: URINE CLARITY HAZY
[2020-02-27 16:52] LABS: SQUAMOUS >10 Many /LPF (0-3); URINE RBC 0-2 Rare /HPF (0-2); URINE WBC-REFLEX 0-5 Rare /HPF (0-5)
[2020-02-27 16:53] LABS: CASTS None Seen /LPF (None Seen); CRYSTALS None Seen /LPF (None Seen); MUCUS 0-3 Light strn/LPF (None Seen)
--- NOTE | 2020-02-27 17:11 | EKG ---
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: [facility] : 1995 Requested By: Geovani Ley Order Number: [id number] MD: Juan Muhammad Measurements Intervals [place] Rate: 101 P: 58 MD: 146 QRS: 2 QRSD: 73 T: 38 QT: 323 QTc: 419 Interpretive Statements Sinus tachycardia septal q waves noted Compared to ECG 08/25/2017 09:23:38 Sinus rhythm no longer present Electronically Signed On 02-27-2020 17:11:12 UNATTENDED GROUND SENSOR SPECIALIST by Juan Muhammad [email or web address] <ELECTRONICALLY SIGNED> By: Juan Muhammad MD, [facility] 02/27/20 171 49 49 Juan Muhammad MD, FAC /EPI
[2020-02-27] MEDS ORDERED: NORCO 5-325 TA1 EAC2 PO (17:20)
[2020-02-27 18:04] VITALS: BP 121/60
== END 2020-02-27 18:05 | disposition home or self-care (01) ==
LOC: M.ERS 13:51
PROVIDERS: Emergency Medicine Emergency Medical Services
DX: R10.11 Right upper quadrant pain (principal); R10.31 Right lower quadrant pain; J45.909 Unspecified asthma, uncomplicated; Z88.0 Allergy status to penicillin; Z88.6 Allergy status to analgesic agent; Z86.2 Personal history of diseases of the blood and blood-forming organs and certain disorders involving the immune mechanism

== ENCOUNTER 2020-06-22 15:40 | Emergency (ER) | payer OTHER, BC ==
[~2020-06-22] VITALS: Ht 165.1 cm; Wt 90.7 kg
[2020-06-22 16:25] LABS: ABSOLUTE BASOPHILS 0.1 thou/uL (0.0-0.2); ABSOLUTE EOSINOPHILS 0.4 thou/uL (0.0-0.7); ABSOLUTE LYMPHOCYTES 3.2 thou/uL (0.8-5.3); ABSOLUTE MONOCYTES 0.6 thou/uL (0.0-1.2); ABSOLUTE NEUTROPHILS 7.6 thou/uL (1.6-8.1); BASOPHILS 0.5 %; EOSINOPHILS 3.2 %; HEMATOCRIT 36.6 % (37.0-47.0); HEMOGLOBIN 12.2 gm/dL (12.0-15.0); LYMPHOCYTES 26.7 %; MCH 29.6 pg (26.0-34.0); MCHC 33.4 g/dL (28.0-37.0); MCV 88.6 fL (80.0-100.0); MPV 7.7 fl. (7.2-11.1); NUCLEATED RBCS 0 /100WBC; PLATELET COUNT* 317 thou/uL (150-400); POLYS 64.6 %; RBC 4.13 mil/uL (4.20-5.00); RDW-CV 12.5 % (10.5-14.5); WBC 11.8 thou/uL (4.0-11.0)
[2020-06-22 16:30] LABS: URINE BILIRUBIN NEGATIVE (Negative); URINE BLOOD 1+ (Negative); URINE CLARITY CLEAR; URINE COLOR YELLOW; URINE GLUCOSE-RANDOM NEGATIVE (Negative); URINE KETONES NEGATIVE (Negative); URINE LEUKOCYTES-REFLEX NEGATIVE (Negative); URINE NITRITE-REFLEX NEGATIVE (Negative); URINE PROTEIN NEGATIVE (Negative); URINE SPECIFIC GRAVITY >= 1.030 (1.005-1.030); URINE UROBILINOGEN 0.2 E.U./dl (0.2-1.0)
[2020-06-22 16:33] LABS: CALCIUM 9.1 mg/dL (8.5-10.1); POTASSIUM 4.1 mmol/L (3.5-5.1)
[2020-06-22 16:39] LABS: AMP/METHAMP Negative (Negative); BARBITURATES Negative (Negative); BENZODIAZEPINES Negative (Negative); COCAINE Negative (Negative); METHADONE Negative (Negative); OPIATES Negative (Negative); PCP Negative (Negative); THC Negative (Negative)
[2020-06-22 16:40] LABS: BACTERIA-REFLEX 1-9 Few /HPF (None Seen); SQUAMOUS >10 Many /LPF (0-3); URINE RBC 0-2 Rare /HPF (0-2); URINE WBC-REFLEX 0-5 Rare /HPF (0-5)
[2020-06-22 16:41] LABS: CASTS None Seen /LPF (None Seen); CRYSTALS None Seen /LPF (None Seen); MUCUS 0-3 Light strn/LPF (None Seen)
[2020-06-22 16:44] LABS: ALBUMIN 3.4 g/dL (3.4-5.0); TOTAL BILIRUBIN 0.2 mg/dL (<0.1-1.0); TOTAL PROTEIN 7.5 g/dL (6.4-8.2)
--- NOTE | 2020-06-22 17:14 | EKG ---
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: [facility] : 1995 Requested By: Reema Welsh Order Number: [id number] MD: Mejia Bautista Measurements Intervals [place] Rate: 91 P: 62 DC: 147 QRS: 5 QRSD: 78 T: 39 QT: 341 QTc: 420 Interpretive Statements Sinus rhythm Anteroseptal infarct, old, possible compared to ECG 02/27/2020 14:50:13 Myocardial infarct finding now present Sinus tachycardia no longer present Q waves no longer present Electronically Signed On 06-22-2020 17:14:46 CDT by Mejia Bautista [email or web address] <ELECTRONICALLY SIGNED> By: Mejia Bautista MD, FACC 06/22/20 1714 1546 1546 Mejia Bautista MD, [facility] /EPI
[2020-06-22 19:41] VITALS: BP 119/73
== END 2020-06-22 19:42 | disposition home or self-care (01) ==
LOC: M.ERS 15:40
PROVIDERS: Nurse Practitioner Family
DX: I25.10 Atherosclerotic heart disease of native coronary artery without angina pectoris (principal); R03.0 Elevated blood-pressure reading, without diagnosis of hypertension; R51.9 Headache, unspecified; J45.909 Unspecified asthma, uncomplicated; Z88.1 Allergy status to other antibiotic agents; Z88.0 Allergy status to penicillin; Z88.6 Allergy status to analgesic agent; Z86.2 Personal history of diseases of the blood and blood-forming organs and certain disorders involving the immune mechanism; Z79.899 Other long term (current) drug therapy

== ENCOUNTER → 2020-08-28 | Outpatient (CLI) | payer OTHER, BC | LOC: M.CT 11:24 | PROVIDERS: ATTEND Family Medicine | DX: R31.9 Hematuria, unspecified (principal); R10.9 Unspecified abdominal pain; R82.998 Other abnormal findings in urine; Z90.49 Acquired absence of other specified parts of digestive tract ==

== ENCOUNTER → 2020-12-18 | Outpatient (CLI) | payer OTHER, BC | LOC: M.MRI 15:30 | PROVIDERS: ATTEND Orthopaedic Surgery | DX: M54.16 Radiculopathy, lumbar region (principal); M54.50 Low back pain, unspecified ==